=== PATIENT | female | born 1930 | race Caucasian/White ===

== ENCOUNTER → 2020-12-18 | Day surgery (SDC) | payer MEDICARE, OTHER ==
[2020-12-15 08:53] VITALS: BMI 28.4
[~2020-12-18] MED LIST: APIXABAN 2.5 MG TABLET PO STA; SODIUM CHLORIDE 0.9% 1,000 ML IV SCH; ceFAZolin 1 GM in SODIUM CHLORIDE 0.9% 250 ML IRRIGATION PRN
[2020-12-18 06:52] LABS: Basophils % (A) 1 %; Eosinophils # (A) 0.3 k/uL (0-0.7); Eosinophils % (A) 6 %; HCT 38.9 % (34.0-46.0); HGB 12.8 gm/dL (11.4-16.0); Lymphocytes # (A) 1.7 k/uL (1.0-4.8); Lymphocytes % (A) 37 %; MCH 33.4 pg (25.0-35.0); MCV 101.4 fL (80.0-100.0); Macrocytosis Slight; Mean Platelet Volume 8.3; Monocytes # (A) 0.3 k/uL (0-1.0); Monocytes % (A) 5 %; Neutrophils # (A) 2.3 k/uL (1.3-7.7); Neutrophils % (A) 49 %; Platelet Count 204 k/uL (150-450); RBC 3.84 m/uL (3.80-5.40); RDW 14.9 % (11.5-15.5); WBC 4.7 k/uL (3.8-10.6)
[2020-12-18 07:26] VITALS: BP 194/96; PULSE 36; RESP 16; TEMP 97
== END ==
LOC: CATHEP 05:56
PROVIDERS: ATTEND Internal Medicine Cardiovascular Disease
DX: R00.1 Bradycardia, unspecified (principal); Z53.9 Procedure and treatment not carried out, unspecified reason
CPT/HCPCS: 85025

== ENCOUNTER 2020-12-24 07:26 | Day surgery (SDC) | payer MEDICARE, OTHER ==
[2020-12-22 11:59] VITALS: BMI 27.4
[~2020-12-24 07:26] MED LIST changes: -APIXABAN 2.5 MG TABLET PO STA; -SODIUM CHLORIDE 0.9% 1,000 ML IV SCH
[2020-12-24] MEDS ORDERED: SODIUM CHLORIDE 0.9% 1,000 ML IV ONE (07:36)
[2020-12-24 08:25] LABS: Calcium 9.9 mg/dL (8.4-10.2)
[2020-12-24 08:26] LABS: Potassium 4.8 mmol/L (3.5-5.1)
[2020-12-24] MEDS ORDERED: IOPAMIDOL-300 50ML BTL IV ONE (09:00)
[2020-12-24] MEDS ORDERED: LIDOCAINE 1% INJ 10MG/ML (20 ML MDV) ONE ×2 (09:05)
[2020-12-24] MEDS ORDERED: fentaNYL (PF) 50 MCG/ML 2 ML AMP ONE (09:10)
[2020-12-24] MEDS ORDERED: fentaNYL (PF) 50 MCG/ML 2 ML AMP IV ONE (09:14)
[2020-12-24] MEDS ORDERED: MIDAZOLAM 2 MG/2 ML VIAL IV ONE (09:14)
[2020-12-24] MEDS ORDERED: LIDOCAINE 1% INJ 10MG/ML (20 ML MDV) SQ ONE (09:19)
--- NOTE | 2020-12-24 10:14 | P.PCN ---
Date of Procedure: 12/24/20 Preoperative Diagnosis: atrial fibrillation, sick sinus syndrome and bradycardia Postoperative Diagnosis: The same Procedure(s) Performed: Single-chamber permanent pacemaker implantation, axillary venography Description of Procedure: HISTORY: his is a 89-year-old female with history of chronic atrial fibrillation and CHF and valvular heart disease was noted to have bradycardic and had been fatigue. Patient was advised to have permanent pacemaker implantation. Patient was referred by Dr. Farmer. CONSENT:I have discussed the risks, benefits and alternative therapies for the above-mentioned procedure and for both sedation/analgesia as well as necessary blood product administration, if indicated, as they pertain to this patient. The patient has indicated understanding and acceptance of the risks and procedures discussed. PROCEDURE: Patient was brought to the lab in a fasting state. Patient was prepped and draped in the usual fashion. Patient was given IV sedation with fentanyl and Versed. The skin below the left clavicle was infiltrated with lidocaine. An incision was made parallel to deltopectoral groove was deepened until the pectoral fascia was exposed. A pocket was created by blunt dissection and cautery. Axillary venography was performed to delineate the course of the axillary vein. A single venous stick was performed into extrathoracic portion of the axillary vein and a single sheath advanced over the guidewires and left in subclavian vein. Conscious Sedation: Versed 0.5mg Fentanyl 12.5 ?g Duration 40minutes LEADS: VENTRICULAR: This is manufactured by [employer]. Model number is 4074-52. The serial number is [id number] THE DEVICE: This is manufactured by [employer].. The model number is [id number] and the serial number is [id number]. The ventricular lead is maneuvered l with help of a straight and curved stylets into the left ventricle apical region. Satisfactory position was obtained and threshold measurements were made. THRESHOLDS: VENTRICLE: The minimum patient threshold was 0.5 V at pulse width of 0.4 ms R-wave:. 8.3. The impedance is 1292 The leads and pulse generator remained in the pocket after it was washed with antibiotics. Pocket was closed in the usual fashion. The fa scia was closed with 2-0 Prolene ,the subcutaneous tissue was closed with 3-0 Prolene and the skin was closed with 4-0 Prolene. PROGRAMMING: MODE: VVIR RATE: 60-110 OUTPUT: Ventricle: 3.5 FINAL IMPRESSION: #1. Successful implantation of single-chamber pacemaker #2. Axillary venography COMPLICATIONS: none PLAN: patient will be monitored on the telemetry unit. Prophylactic antibiotics we'll continue. Chest x-ray in the morning. If x-ray findings and thresholds are stable, patient will be discharged home tomorrow.
[2020-12-24] MEDS: SODIUM CHLORIDE 0.9% 1,000 ML IV SCH (11:05)
[2020-12-24] MEDS: CYANOCOBALAMIN 500 MCG TAB PO SCH (12:08)
[2020-12-24] MEDS: CHOLECALCIFEROL 25 MCG (1000 IU) TABLET PO SCH (12:08)
[2020-12-24] MEDS: FUROSEMIDE 20 MG TAB PO SCH (14:58)
[2020-12-24] MEDS: VIT A,C & E-LUTEIN-MINERALS 1 EACH TAB PO SCH (19:53)
[2020-12-24] MEDS: ACETAMINOPHEN TAB 325 MG TAB PO PRN (19:53)
[2020-12-24] MEDS: DOCUSATE 100 MG CAP PO SCH (19:53)
[2020-12-24] MEDS ORDERED: LORazepam 0.5 MG TAB PO SCH (21:00)
[2020-12-25] MEDS: ACETAMINOPHEN TAB 325 MG TAB PO PRN ×2 (02:40→11:47)
[2020-12-25] MEDS: SODIUM CHLORIDE 0.9% 1,000 ML IV SCH (02:42)
[2020-12-25] MEDS ORDERED: PANTOPRAZOLE 40 MG TABLET PO SCH (07:30)
--- NOTE | 2020-12-25 08:50 | XR ---
EXAMINATION TYPE: XR chest 2V DATE OF EXAM: 12/25/2020 COMPARISON: NONE HISTORY: Lead placement check TECHNIQUE: Frontal and lateral views of the chest are obtained. FINDINGS: Patient is rotated. There is a generator in the left pectoral region, lead is present in t he right ventricle, there are overlying leads. No evident pneumothorax or pleural effusion. Heart is enlarged. Aorta is dense. There is questionable prominence of pulmonary artery, lobular densities als o present possibly at the right lung base. There is an inferior vena cava filter in place. There are prominent lung volumes. Arthropathy noted in the right shoulder. IMPRESSION: Cardiomegaly, no evident complication status post pacemaker placement. Rotated exam with indeterminate right lower hemithorax density. There may be underlying pulmonary artery hypertension.
[2020-12-25] MEDS ORDERED: allopurinoL 100 MG TAB PO SCH (09:00)
[2020-12-25] MEDS ORDERED: SERTRALINE 25 MG TAB PO SCH (09:00)
[2020-12-25] MEDS: DOCUSATE 100 MG CAP PO SCH (09:02)
[2020-12-25] MEDS: FUROSEMIDE 20 MG TAB PO SCH (09:02)
[2020-12-25] MEDS: VIT A,C & E-LUTEIN-MINERALS 1 EACH TAB PO SCH (09:03)
[2020-12-25 13:32] VITALS: BP 156/76; PULSE 63; RESP 16; TEMP 96.8
[2020-12-25] MEDS: CHOLECALCIFEROL 25 MCG (1000 IU) TABLET PO SCH (13:51)
[2020-12-25] MEDS: CYANOCOBALAMIN 500 MCG TAB PO SCH (13:51)
== END 2020-12-25 16:24 | disposition home or self-care (01) ==
LOC: CATHEP 07:26 → 6NMEDSUR 09:49 → CATHEP 12-25 16:24
PROVIDERS: ATTEND Internal Medicine Cardiovascular Disease
DX: I48.20 Chronic atrial fibrillation, unspecified (principal); I49.5 Sick sinus syndrome; I50.9 Heart failure, unspecified
CPT/HCPCS: 33207; 80048; 87635; 71046; C1769 ×2; C1892; C1898; C1786; J2250; J0690 ×2; J2001; J3010; Q9967; 33206

== ENCOUNTER 2021-12-10 14:23 | Inpatient (IN) | payer MEDICARE, OTHER ==
[2021-12-10] MEDS ORDERED: SODIUM CHLORIDE 0.9% 500 ML 500 ML IV STA (14:48)
--- NOTE | 2021-12-10 15:59 | ED ---
General Adult HPI - General Chief complaint: Extremity Problem,Nontraumatic Stated complaint: Extremity weakness Time Seen by Provider: 12/10/21 15:54 Source: patient Mode of arrival: ambulatory Limitations: no limitations - History of Present Illness Initial comments: 89-year-old female with past medical history of A. fib on Eliquis, colon cancer status post colostomy and congestive heart failure who presents to the emergency department with lower extremity edema. States that she has been seeing Dr. alberto and office. She was placed on Lasix 40 mg twice a day and hasn't taken medications as directed for the past 2 weeks because of her lower extremity edema. States that it has not been improving. Has caused significant pain in her feet. Patient arrives with an elevated heart rate. Does not take any medications for her A. fib other than her anticoagulation. Patient follows with Dr. Farmer. No chest pain. Mild shortness of breath when exertional. No fevers, chills or cough. No numbness or tingling in her extremities. No other alleviating, precipitating or modifying factors - Related Data Home Medications Medication Instructions Recorded Confirmed Acetaminophen [Tylenol Extra 1,000 mg PO DAILY 12/15/20 12/10/21 Strength] Acetaminophen [Tylenol Extra 500 mg PO HS 12/15/20 12/10/21 Strength] Cholecalciferol [Vitamin D3 (25 25 mcg PO DAILY 12/15/20 12/10/21 Mcg = 1000 Iu)] Cyanocobalamin [Vitamin B-12] 500 mcg PO DAILY 12/15/20 12/10/21 Furosemide [Lasix] 20 mg PO QID 12/15/20 12/10/21 LORazepam [Ativan] 0.5 mg PO HS 12/15/20 12/10/21 Sertraline HCl [Zoloft] 25 mg PO DAILY 12/15/20 12/10/21 Vit C/E/Zn/Coppr/Lutein/Zeaxan 1 cap PO DAILY 12/15/20 12/10/21 [Preservision Areds 2 Softgel] allopurinoL [Zyloprim] 50 mg PO DAILY 12/22/20 12/10/21 Apixaban [Eliquis] 2.5 mg PO BID 12/10/21 12/10/21 Docusate [Colace] 100 mg PO BID 12/10/21 12/10/21 HYDROcodone/APAP 5-325MG [[place] 1 tab PO Q6HR PRN 12/10/21 12/10/21 5-325] Meclizine [Antivert] 12.5 - 25 mg PO TID PRN 12/10/21 12/10/21 Multivitamins, Thera [Multivitamin 1 tab PO DAILY 12/10/21 12/10/21 (formulary)] Omeprazole 40 mg PO BID 12/10/21 12/10/21 Allergies Allergy/AdvReac Type Severity Reaction Status Date / Time No Known Allergies Allergy Verified 12/10/21 18:16 Review of Systems ROS Statement: Those systems with pertinent positive or pertinent negative responses have been documented in the HPI. ROS Other: All systems not noted in ROS Statement are negative. Past Medical History Past Medical History: Cancer, GERD/Reflux, Osteoarthritis (OA) Additional Past Medical History / Comment(s): see Dr Leger H&P, migraines, colostomy, hx colon cancer, hx gout, bradycardia History of Any Multi-Drug Resistant Organisms: None Reported Past Surgical History: Bowel Resection, Pacemaker Additional Past Surgical History / Comment(s): bowel resection with colostomy, radha cataracts Past Anesthesia/Blood Transfusion Reactions: No Reported Reaction Past Psychological History: Anxiety Smoking Status: Never smoker Past Alcohol Use History: None Reported Past Drug Use History: None Reported - Past Family History Mother Family Medical History: No Reported History General Exam Limitations: no limitations General appearance: alert, in no apparent distress Head exam: Present: atraumatic, normocephalic, normal inspection Eye exam: Present: normal appearance, PERRL, EOMI. Absent: scleral icterus, conjunctival injection, periorbital swelling ENT exam: Present: normal exam, mucous membranes moist Neck exam: Present: normal inspection. Absent: tenderness, meningismus, lymphadenopathy Respiratory exam: Present: normal lung sounds bilaterally. Absent: respiratory distress, wheezes, rales, rhonchi, stridor Cardiovascular Exam: Present: tachycardia, irregular rhythm, normal heart sounds. Absent: systolic murmur, diastolic murmur, rubs, gallop, clicks GI/Abdominal exam: Present: soft, normal bowel sounds. Absent: distended, tenderness, guarding, rebound, rigid Extremities exam: Present: full ROM, normal capillary refill, pedal edema, other (severe deformity of the bilateral second toes). Absent: tenderness, joint swelling, calf tenderness Back exam: Present: normal inspection Neurological exam: Present: alert, oriented X3, CN II-XII intact Psychiatric exam: Present: normal affect, normal mood Skin exam: Present: warm, dry, intact, normal color. Absent: rash Course Vital Signs 12/10/21 12/10/21 12/10/21 14:25 16:13 16:35 Temperature 97.9 F 98.8 F Pulse Rate 148 H 129 H Pulse Rate [ Substation Engineer ] Respiratory 20 16 Rate Blood Pressure 95/68 112/102 Blood Pressure [Right Arm] O2 Sat by Pulse 96 Oximetry 12/10/21 12/10/21 12/10/21 20:24 20:27 21:40 Temperature 98.4 F Pulse Rate 115 H 90 Pulse Rate [ 101 H Substation Engineer ] Respiratory 18 17 Rate Blood Pressure 107/64 101/71 Blood Pressure 96/72 [Right Arm] O2 Sat by Pulse 98 96 Oximetry 12/10/21 21:47 Temperature 98.4 F Pulse Rate Pulse Rate [ 101 H Substation Engineer ] Respiratory 17 Rate Blood Pressure Blood Pressure 96/72 [Right Arm] O2 Sat by Pulse Oximetry EKG Findings - EKG Comments: EKG Findings:: EKG demonstrates A. fib with the rapid ventricular rate of 117. QRS 133. QTC of 407. There is a left bundle branch block. No acute ST segment elevations or depressions Medical Decision Making - Medical Decision Making Upon arrival patient is placed into trauma 4. She is hooked up to continuous pulse ox and cardiac monitoring. Patient does have an elevated heart rate of anywhere from 100-125. IV is established and laboratory studies were conducted. They do reveal an elevated BNP of 10,600. Chest x-ray demonstrates no signs of interstitial edema. Patient was given 40 mg of Lasix for her fluid retention and 2.5 mg of Lopressor. Recommended admission for her A. fib with RVR and failed outpatient treatment of congestive heart failure. Spoke with Dr. Zavala who agreed to admit the patient - Lab Data Result diagrams: 12/13/21 07:06 12/14/21 09:45 Lab Results 12/10/21 12/10/21 12/10/21 Range/Units 16:28 16:28 16:28 WBC 4.4 (3.8-10.6) k/uL RBC 3.87 (3.80-5.40) m/uL Hgb 12.2 (11.4-16.0) gm/dL Hct 39.0 (34.0-46.0) % MCV 100.7 H (80.0-100.0) fL MCH 31.6 (25.0-35.0) pg MCHC 31.3 (31.0-37.0) g/dL RDW 14.9 (11.5-15.5) % Plt Count 191 (150-450) k/uL MPV 9.0 Neutrophils % (Manual) 63 % Band Neuts % (Manual) 1 % Lymphocytes % (Manual) 27 % Monocytes % (Manual) 4 % Eosinophils % (Manual) 3 % Basophils % (Manual) 2 % Neutrophils # (Manual) 2.80 (1.3-7.7) k/uL Lymphocytes # (Manual) 1.19 (1.0-4.8) k/uL Monocytes # (Manual) 0.18 (0-1.0) k/uL Eosinophils # (Manual) 0.13 (0-0.7) k/uL Basophils # (Manual) 0.09 (0-0.2) k/uL Nucleated RBCs 0 (0-0) /100 WBC Manual Slide Review Performed Hypochromasia Slight Macrocytosis Slight PT 12.1 H (9.0-12.0) sec INR 1.1 (<1.2) APTT 25.1 (22.0-30.0) sec Sodium 138 (137-145) mmol/L Potassium 4.0 (3.5-5.1) mmol/L Chloride 99 (98-107) mmol/L Carbon Dioxide 28 (22-30) mmol/L Anion Gap 11 mmol/L BUN 29 H (7-17) mg/dL Creatinine 1.14 H (0.52-1.04) mg/dL Est GFR (CKD-EPI)AfAm 50 (>60 ml/min/1.73 sqM) Est GFR (CKD-EPI)NonAf 43 (>60 ml/min/1.73 sqM) Glucose 95 (74-99) mg/dL Calcium 9.4 (8.4-10.2) mg/dL Magnesium 1.8 (1.6-2.3) mg/dL Total Bilirubin 0.6 (0.2-1.3) mg/dL AST 43 H (14-36) U/L ALT 24 (4-34) U/L Alkaline Phosphatase 92 (38-126) U/L Troponin I (0.000-0.034) ng/mL NT-Pro-B Natriuret Pep pg/mL Total Protein 6.2 L (6.3-8.2) g/dL Albumin 3.7 (3.5-5.0) g/dL 12/10/21 12/10/21 Range/Units 16:28 16:28 WBC (3.8-10.6) k/uL RBC (3.80-5.40) m/uL Hgb (11.4-16.0) gm/dL Hct (34.0-46.0) % MCV (80.0-100.0) fL MCH (25.0-35.0) pg MCHC (31.0-37.0) g/dL RDW (11.5-15.5) % Plt Count (150-450) k/uL MPV Neutrophils % (Manual) % Band Neuts % (Manual) % Lymphocytes % (Manual) % Monocytes % (Manual) % Eosinophils % (Manual) % Basophils % (Manual) % Neutrophils # (Manual) (1.3-7.7) k/uL Lymphocytes # (Manual) (1.0-4.8) k/uL Monocytes # (Manual) (0-1.0) k/uL Eosinophils # (Manual) (0-0.7) k/uL Basophils # (Manual) (0-0.2) k/uL Nucleated RBCs (0-0) /100 WBC Manual Slide Review Hypochromasia Macrocytosis PT (9.0-12.0) sec INR (<1.2) APTT (22.0-30.0) sec Sodium (137-145) mmol/L Potassium (3.5-5.1) mmol/L Chloride (98-107) mmol/L Carbon Dioxide (22-30) mmol/L Anion Gap mmol/L BUN (7-17) mg/dL Creatinine (0.52-1.04) mg/dL Est GFR (CKD-EPI)AfAm (>60 ml/min/1.73 sqM) Est GFR (CKD-EPI)NonAf (>60 ml/min/1.73 sqM) Glucose (74-99) mg/dL Calcium (8.4-10.2) mg/dL Magnesium (1.6-2.3) mg/dL Total Bilirubin (0.2-1.3) mg/dL AST (14-36) U/L ALT (4-34) U/L Alkaline Phosphatase (38-126) U/L Troponin I 0.018 (0.000-0.034) ng/mL NT-Pro-B Natriuret Pep 04832 pg/mL Total Protein (6.3-8.2) g/dL Albumin (3.5-5.0) g/dL Disposition Clinical Impression: Peripheral edema, Atrial fibrillation with RVR Disposition: ADMITTED IP TO THIS HOSP Condition: Stable Is patient prescribed a controlled substance at d/c from ED?: No Time of Disposition: 18:43 Decision to Admit Reason: Admit from EC Decision Date: 12/10/21 Decision Time: 18:43
[2021-12-10 16:45] LABS: HGB 12.2 gm/dL (11.4-16.0); Hypochromasia Slight; MCH 31.6 pg (25.0-35.0); MCHC 31.3 g/dL (31.0-37.0); MCV 100.7 fL (80.0-100.0); Macrocytosis Slight; RBC 3.87 m/uL (3.80-5.40); RDW 14.9 % (11.5-15.5); WBC 4.4 k/uL (3.8-10.6)
[2021-12-10 16:56] LABS: Albumin 3.7 g/dL (3.5-5.0); Calcium 9.4 mg/dL (8.4-10.2); Magnesium 1.8 mg/dL (1.6-2.3); Total Bilirubin 0.6 mg/dL (0.2-1.3); Total Protein 6.2 g/dL (6.3-8.2)
[2021-12-10 17:20] LABS: INR 1.1 (<1.2); Partial Thromboplastin Time 25.1 sec (22.0-30.0); Prothrombin Time 12.1 sec (9.0-12.0)
--- NOTE | 2021-12-10 17:22 | XR ---
EXAMINATION TYPE: XR chest 2V DATE OF EXAM: 12/10/2021 COMPARISON: 12/25/2020 HISTORY: Dysrhythmia TECHNIQUE: 2 views FINDINGS: Heart is enlarged. There is no heart failure. There is left axillary pacemaker. No definite pleural effusion. There are no hilar masses. IMPRESSION: Cardiomegaly. No pulmonary consolidation or heart failure. No significant change compared to old exam.
[2021-12-10 17:36] LABS: Band Neutrophils % 1 %; Basophils # (M) 0.09 k/uL (0-0.2); Eosinophils # (M) 0.13 k/uL (0-0.7); Lymphocytes # (M) 1.19 k/uL (1.0-4.8); Monocytes # (M) 0.18 k/uL (0-1.0); Neutrophils % (M) 63 %; Nucleated Red Blood Cells 0 /100 WBC (0-0); Total Cells Counted 100
[2021-12-10 17:37] LABS: Platelet Count 191 k/uL (150-450)
[2021-12-10] MEDS ORDERED: METOPROLOL TARTRATE 5 MG/5 ML VIAL IVP STA (18:42)
[2021-12-10] MEDS ORDERED: NALOXONE 0.4 MG/ML 1 ML VIAL IV PRN (18:43)
[2021-12-10 19:11] LABS: Appearance,Urine Clear (Clear); Bilirubin,Urine Negative (Negative); Blood,Urine Negative (Negative); Color,Urine Yellow; Glucose,Urine (UA) Negative (Negative); Hyaline Casts,Urine 7 /lpf (0-2); Ketones,Urine Trace (Negative); Leukocyte Esterase,Urine Moderate (Negative); Mucus,Urine Rare /hpf; Nitrite,Urine Negative (Negative); PH, Urine 5.5 (5.0-8.0); Protein,Urine Trace (Negative); RBC,Urine 1 /hpf (0-5); Specific Gravity,Urine 1.017 (1.001-1.035); Squamous Epithelial Cell,Urine <1 /hpf (0-4); Urobilinogen,Urine <2.0 mg/dL (<2.0); WBC,Urine 32 /hpf (0-5)
[2021-12-10] MEDS: FUROSEMIDE 10 MG/ML 4 ML VIAL IV STA ×2 (20:23→22:12)
[2021-12-11] MEDS ORDERED: HYDROcodone/APAP 5-325MG 1 EACH TAB PO PRN (01:16)
[2021-12-11] MEDS: PANTOPRAZOLE 40 MG TABLET PO SCH (08:27)
[2021-12-11] MEDS: APIXABAN 2.5 MG TABLET PO SCH ×2 (08:27→20:19)
[2021-12-11] MEDS: allopurinoL 100 MG TAB PO SCH (08:27)
[2021-12-11] MEDS ORDERED: FUROSEMIDE 10 MG/ML 4 ML VIAL IV SCH (09:00)
[2021-12-11] MEDS ORDERED: ACETAMINOPHEN TAB 325 MG TAB PO PRN (09:39)
[2021-12-11] MEDS: METOPROLOL TARTRATE 12.5 MG TAB PO SCH ×2 (09:54→20:19)
[2021-12-11 10:40] LABS: African American GFR (CKD) 58 (>60 ml/min/1.73 sqM); Anion Gap 8 mmol/L; Blood Urea Nitrogen 25 mg/dL (7-17); Calcium 9.1 mg/dL (8.4-10.2); Carbon Dioxide 31 mmol/L (22-30); Chloride 99 mmol/L (98-107); Glucose 115 mg/dL (74-99); Non-African American GFR(CKD) 50 (>60 ml/min/1.73 sqM); Potassium 3.6 mmol/L (3.5-5.1); Sodium 138 mmol/L (137-145)
--- NOTE | 2021-12-11 10:47 | P.CRDCN ---
History of Present Illness Consult date: 12/11/21 Consult reason: congestive heart failure History of present illness: The patient is an 89-year-old female who follows in the office with Dr. Farmer. The patient has a history of persistent atrial fibrillation and sick sinus syndrome status post permanent pacemaker implantation in 2020. The patient states she was doing well and last followed with a athletic director in August, however she developed increasing shortness of breath and lower extremity edema. Cardiology was consulted for elevated BNP. DIAGNOSTICS: EKG shows atrial fibrillation with heart rate 117 bpm Chest x-ray shows no pulmonary consolidation or heart failure Vitals: Blood pressure 101/58, pulse 92, SpO2 93% on room air, afebrile Lab: BNP 10,000, troponin 0.01, 0.01, 0.02, sodium 138, potassium 4.0, BUN 29, creatinine 1.14, AST 43, ALT 24, WBC 4.4, hemoglobin 12.2, hematocrit 39.0, platelet 191 PAST MEDICAL HISTORY: Sick sinus syndrome, status post permanent pacemaker, persistent atrial fibrillation REVIEW OF SYSTEMS: No fever or chills. No cough or expectoration. No diaphoresis. Patient denies headache, dizziness, blurred vision, double vision. Patient denies any stomach discomfort. No nausea, vomiting. No hematochezia. No hematemesis. Denies any black stools or blood in his stools. Denies dysuria or hematuria. No muscle weakness or numbness. Denies chest pain or chest pressure. Positive for dyspnea PHYSICAL EXAMINATION: This is a 89 year-old female in no apparent distress at the time of my examination. HEENT: Head is atraumatic, normocephalic. Pupils are equal, round. Sclerae anicteric. Conjunctivae are clear. Mucous membranes of the mouth are moist. Neck is supple. There is no jugular venous distention. No carotid bruit is heard. CHEST EXAMINATION: Lungs are diminished to auscultation. No chest wall tenderness is noted on palpation or with deep breathing. HEART EXAMINATION: Irregular rate and rhythm. S1, S2 heard. Soft systolic murmur. gallops or rub. ABDOMEN: Soft, nontender. Bowel sounds are heard. No organomegaly noted. EXTREMITIES: 2+ peripheral pulses. +1-2 peripheral edema and no calf tenderness noted. NEUROLOGIC EXAMINATION: Patient is awake, alert and oriented x3. FINAL ASSESSMENT AND PLAN: Persistent atrial fibrillation, started on low-dose beta alden Sick sinus syndrome, status post permanent pacemaker Congestive heart failure, elevated BNP, diuresed with IV furosemide PLAN: Continue beta alden and anticoagulation Reduce furosemide to 40 mg IV push once daily No need for repeat echocardiogram at this time. Elective echocardiogram outpatient with primary athletic director. Further recommendations based upon clinical course I am dictating on behalf of Dr Oziel Vega's history/physical and assessment/plan. Past Medical History Past Medical History: Cancer, GERD/Reflux, Osteoarthritis (OA) Additional Past Medical History / Comment(s): see Dr Leger H&P, migraines, colostomy, hx colon cancer, hx gout, bradycardia History of Any Multi-Drug Resistant Organisms: None Reported Past Surgical History: Bowel Resection, Pacemaker Additional Past Surgical History / Comment(s): bowel resection with colostomy, radha cataracts Past Anesthesia/Blood Transfusion Reactions: No Reported Reaction Type of Cardiac Device: Permanent Pacemaker Device Placement Date:: 2020 Past Psychological History: Anxiety Smoking Status: Never smoker Past Alcohol Use History: None Reported Past Drug Use History: None Reported - Past Family History Mother Family Medical History: No Reported History Medications and Allergies Home Medications Medication Instructions Recorded Confirmed Type Acetaminophen [Tylenol Extra 1,000 mg PO DAILY 12/15/20 12/10/21 History Strength] Acetaminophen [Tylenol Extra 500 mg PO HS 12/15/20 12/10/21 History Strength] Cholecalciferol [Vitamin D3 (25 25 mcg PO DAILY 12/15/20 12/10/21 History Mcg = 1000 Iu)] Cyanocobalamin [Vitamin B-12] 500 mcg PO DAILY 12/15/20 12/10/21 History Furosemide [Lasix] 20 mg PO QID 12/15/20 12/10/21 History LORazepam [Ativan] 0.5 mg PO HS 12/15/20 12/10/21 History Sertraline HCl [Zoloft] 25 mg PO DAILY 12/15/20 12/10/21 History Vit C/E/Zn/Coppr/Lutein/Zeaxan 1 cap PO DAILY 12/15/20 12/10/21 History [Preservision Areds 2 Softgel] allopurinoL [Zyloprim] 50 mg PO DAILY 12/22/20 12/10/21 History Apixaban [Eliquis] 2.5 mg PO BID 12/10/21 12/10/21 History Docusate [Colace] 100 mg PO BID 12/10/21 12/10/21 History HYDROcodone/APAP 5-325MG [[place] 1 tab PO Q6HR PRN 12/10/21 12/10/21 History 5-325] Meclizine [Antivert] 12.5 - 25 mg PO TID PRN 12/10/21 12/10/21 History Multivitamins, Thera [Multivitamin 1 tab PO DAILY 12/10/21 12/10/21 History (formulary)] Omeprazole 40 mg PO BID 12/10/21 12/10/21 History Allergies Allergy/AdvReac Type Severity Reaction Status Date / Time No Known Allergies Allergy Verified 12/10/21 18:16 Physical Exam Vitals: Vital Signs Temp Pulse Pulse Resp BP BP Pulse Ox 12/11/21 08:21 97.8 F 92 16 101/58 93 L 12/11/21 04:00 98.0 F 99 18 96/70 97 12/11/21 02:00 112 H 12/11/21 00:00 97.9 F 112 H 18 96/63 94 L 12/10/21 21:47 98.4 F 101 H 17 96/72 12/10/21 21:40 98.4 F 101 H 17 96/72 96 12/10/21 20:27 90 101/71 12/10/21 20:24 115 H 18 107/64 98 12/10/21 16:35 98.8 F 12/10/21 16:13 129 H 16 112/102 12/10/21 14:25 97.9 F 148 H 20 95/68 96 Intake and Output 12/10/21 12/11/21 12/11/21 22:59 06:59 14:59 Intake Total 120 Balance 120 Intake: Oral 120 Other: Voiding Method Toilet External Catheter # Voids 1 Weight 55.338 kg Results 12/10/21 16:28 12/10/21 16:28 Cardiac Enzymes 12/10/21 12/10/21 12/10/21 Range/Units 16:28 16:28 20:46 AST 43 H (14-36) U/L Troponin I 0.018 0.019 (0.000-0.034) ng/mL 12/11/21 Range/Units 00:30 AST (14-36) U/L Troponin I 0.023 (0.000-0.034) ng/mL Coagulation 12/10/21 Range/Units 16:28 PT 12.1 H (9.0-12.0) sec APTT 25.1 (22.0-30.0) sec CBC 12/10/21 Range/Units 16:28 WBC 4.4 (3.8-10.6) k/uL RBC 3.87 (3.80-5.40) m/uL Hgb 12.2 (11.4-16.0) gm/dL Hct 39.0 (34.0-46.0) % Plt Count 191 (150-450) k/uL Comprehensive Metabolic Panel 12/10/21 Range/Units 16:28 Sodium 138 (137-145) mmol/L Potassium 4.0 (3.5-5.1) mmol/L Chloride 99 (98-107) mmol/L Carbon Dioxide 28 (22-30) mmol/L BUN 29 H (7-17) mg/dL Creatinine 1.14 H (0.52-1.04) mg/dL Glucose 95 (74-99) mg/dL Calcium 9.4 (8.4-10.2) mg/dL AST 43 H (14-36) U/L ALT 24 (4-34) U/L Alkaline Phosphatase 92 (38-126) U/L Total Protein 6.2 L (6.3-8.2) g/dL Albumin 3.7 (3.5-5.0) g/dL Current Medications Generic Name Dose Route Start Last Admin Trade Name Freq PRN Reason Stop Dose Admin Acetaminophen 650 mg 12/11/21 09:39 12/11/21 09:54 Acetaminophen Tab 325 Mg Tab PO 650 mg Q6HR PRN Administration Fever and/ or Pain Hydrocodone Bitart/Acetaminophen 1 each 12/11/21 01:16 Hydrocodone/Apap 5-325mg 1 Each Tab PO Q6HR PRN Pain Allopurinol 50 mg 12/11/21 09:00 12/11/21 08:27 Allopurinol 100 Mg Tab PO 50 mg DAILY NALLELY Administration Apixaban 2.5 mg 12/11/21 09:00 12/11/21 08:27 Apixaban 2.5 Mg Tablet PO 2.5 mg BID NALLELY Administration Protocol Furosemide 40 mg 12/12/21 09:00 Furosemide 40 Mg Tab PO DAILY NALLELY Lorazepam 0.5 mg 12/11/21 21:00 Lorazepam 0.5 Mg Tab PO HS NALLELY Metoprolol Tartrate 12.5 mg 12/11/21 10:00 12/11/21 09:54 Metoprolol Tartrate 12.5 Mg Tab PO 12.5 mg BID NALLELY Administration Naloxone HCl 0.2 mg 12/10/21 18:43 Naloxone 0.4 Mg/Ml 1 Ml Vial IV Q2M PRN Opioid Reversal Pantoprazole Sodium 40 mg 12/11/21 09:00 12/11/21 08:27 Pantoprazole 40 Mg Tablet PO 40 mg DAILY NALLELY Administration Intake and Output 12/10/21 12/11/21 12/11/21 22:59 06:59 14:59 Intake Total 120 Balance 120 Intake: Oral 120 Other: Voiding Method Toilet External Catheter # Voids 1 Weight 55.338 kg 12/10/21 16:28 12/10/21 16:28
[2021-12-11 10:50] LABS: Basophils % (A) 1 %; Eosinophils % (A) 1 %; HCT 40.3 % (34.0-46.0); HGB 12.7 gm/dL (11.4-16.0); Hypochromasia Slight; Lymphocytes # (A) 1.1 k/uL (1.0-4.8); Lymphocytes % (A) 23 %; MCH 32.2 pg (25.0-35.0); MCHC 31.5 g/dL (31.0-37.0); MCV 102.1 fL (80.0-100.0); Macrocytosis Slight; Mean Platelet Volume 9.3; Monocytes # (A) 0.3 k/uL (0-1.0); Monocytes % (A) 6 %; Neutrophils # (A) 3.1 k/uL (1.3-7.7); Neutrophils % (A) 67 %; Platelet Count 215 k/uL (150-450); RBC 3.94 m/uL (3.80-5.40); RDW 15.4 % (11.5-15.5); WBC 4.7 k/uL (3.8-10.6)
[2021-12-11] MEDS: ONDANSETRON 4 MG/2 ML VIAL IVP PRN (11:01)
[2021-12-11] MEDS ORDERED: MECLIZINE 25 MG TAB PO PRN (14:21)
[2021-12-11] MEDS: FUROSEMIDE 20 MG TAB PO SCH ×2 (17:19→23:04)
[2021-12-11] MEDS: DOCUSATE 100 MG CAP PO SCH (19:55)
[2021-12-11] MEDS: ACETAMINOPHEN TAB 500 MG TAB PO SCH (20:19)
[2021-12-11] MEDS: LORazepam 0.5 MG TAB PO SCH (20:19)
[2021-12-12] MEDS: METOPROLOL TARTRATE 12.5 MG TAB PO SCH ×2 (08:20→22:00)
[2021-12-12] MEDS: FUROSEMIDE 20 MG TAB PO SCH ×4 (08:20→22:01)
[2021-12-12] MEDS: PANTOPRAZOLE 40 MG TABLET PO SCH (08:20)
[2021-12-12] MEDS: VIT A,C & E-LUTEIN-MINERALS 1 EACH TAB PO SCH (08:20)
[2021-12-12] MEDS: SERTRALINE 25 MG TAB PO SCH (08:20)
[2021-12-12] MEDS: CYANOCOBALAMIN 500 MCG TAB PO SCH (08:20)
[2021-12-12] MEDS: APIXABAN 2.5 MG TABLET PO SCH ×2 (08:20→22:01)
[2021-12-12] MEDS: CHOLECALCIFEROL 25 MCG (1000 IU) TABLET PO SCH (08:20)
[2021-12-12] MEDS: allopurinoL 100 MG TAB PO SCH (08:20)
[2021-12-12] MEDS: MULTIVITAMINS, THERA 1 EACH TAB PO SCH (08:20)
[2021-12-12] MEDS: DOCUSATE 100 MG CAP PO SCH ×2 (08:20→22:01)
[2021-12-12] MEDS ORDERED: FUROSEMIDE 40 MG TAB PO SCH (09:00)
[2021-12-12] MEDS ORDERED: FUROSEMIDE 10 MG/ML 4 ML VIAL IV SCH (09:00)
--- NOTE | 2021-12-12 09:36 | P.HPIM ---
History of Present Illness H&P Date: 12/11/21 Maggy Davison, is an 89-year-old female who presented to [facility] emergency room with a chief complaint of bilateral lower extremity pain and swelling She was evaluated in the emergency room vital examination on presentation revealed a temperature of 97.9 pulse 148 respiration 20 blood pressure 95/68 pulse ox 96% on room air Laboratory data reveals a white blood count of 4.4 hemoglobin 12.2 platelet count 191 sodium 138 potassium 4.0 chloride 99 CO2 28 BUN 29 creatinine 1.14 urine analysis revealed evidence of urinary tract infection Testing in the emergency room revealed EKG done in the emergency room revealed evidence of atrial fibrillation with rapid ventricular response, chest x-ray done in the emergency room revealed cardiomegaly otherwise no acute abnormality. Patient was admitted to medical floor for further evaluation and treatment Past Medical History Past Medical History: Cancer, GERD/Reflux, Osteoarthritis (OA) Additional Past Medical History / Comment(s): see Dr Leger H&P, migraines, colostomy, hx colon cancer, hx gout, bradycardia History of Any Multi-Drug Resistant Organisms: None Reported Past Surgical History: Bowel Resection, Pacemaker Additional Past Surgical History / Comment(s): bowel resection with colostomy, radha cataracts Past Anesthesia/Blood Transfusion Reactions: No Reported Reaction Type of Cardiac Device: Permanent Pacemaker Device Placement Date:: 2020 Past Psychological History: Anxiety Smoking Status: Never smoker Past Alcohol Use History: None Reported Past Drug Use History: None Reported - Past Family History Mother Family Medical History: No Reported History Medications and Allergies Home Medications Medication Instructions Recorded Confirmed Type Acetaminophen [Tylenol Extra 1,000 mg PO DAILY 12/15/20 12/10/21 History Strength] Acetaminophen [Tylenol Extra 500 mg PO HS 12/15/20 12/10/21 History Strength] Cholecalciferol [Vitamin D3 (25 25 mcg PO DAILY 12/15/20 12/10/21 History Mcg = 1000 Iu)] Cyanocobalamin [Vitamin B-12] 500 mcg PO DAILY 12/15/20 12/10/21 History Furosemide [Lasix] 20 mg PO QID 12/15/20 12/10/21 History LORazepam [Ativan] 0.5 mg PO HS 12/15/20 12/10/21 History Sertraline HCl [Zoloft] 25 mg PO DAILY 12/15/20 12/10/21 History Vit C/E/Zn/Coppr/Lutein/Zeaxan 1 cap PO DAILY 12/15/20 12/10/21 History [Preservision Areds 2 Softgel] allopurinoL [Zyloprim] 50 mg PO DAILY 12/22/20 12/10/21 History Apixaban [Eliquis] 2.5 mg PO BID 12/10/21 12/10/21 History Docusate [Colace] 100 mg PO BID 12/10/21 12/10/21 History HYDROcodone/APAP 5-325MG [[place]ven 1 tab PO Q6HR PRN 12/10/21 12/10/21 History 5-325] Meclizine [Antivert] 12.5 - 25 mg PO TID PRN 12/10/21 12/10/21 History Multivitamins, Thera [Multivitamin 1 tab PO DAILY 12/10/21 12/10/21 History (formulary)] Omeprazole 40 mg PO BID 12/10/21 12/10/21 History Allergies Allergy/AdvReac Type Severity Reaction Status Date / Time No Known Allergies Allergy Verified 12/10/21 18:16 Physical Exam Vitals: Vital Signs Temp Pulse Pulse Resp BP BP Pulse Ox 12/11/21 11:32 99 16 99/67 94 L 12/11/21 08:21 97.8 F 92 16 101/58 93 L 12/11/21 04:00 98.0 F 99 18 96/70 97 12/11/21 02:00 112 H 12/11/21 00:00 97.9 F 112 H 18 96/63 94 L 12/10/21 21:47 98.4 F 101 H 17 96/72 12/10/21 21:40 98.4 F 101 H 17 96/72 96 12/10/21 20:27 90 101/71 12/10/21 20:24 115 H 18 107/64 98 12/10/21 16:35 98.8 F 12/10/21 16:13 129 H 16 112/102 12/10/21 14:25 97.9 F 148 H 20 95/68 96 Intake and Output 12/10/21 12/11/21 12/11/21 22:59 06:59 14:59 Intake Total 120 Balance 120 Intake: Oral 120 Other: Voiding Method Toilet External Catheter # Voids 1 Weight 55.338 kg In general patient is alert and oriented x 3 in no distress HEENT head normocephalic and atraumatic Neck is supple no JVD no goiter no lymphadenopathy no carotid bruit Chest examination is clear to auscultation no crackles no wheezing Cardiac exam reveals regular heart sounds S1 and S2 no gallops no murmurs Abdomen is soft nontender no organomegaly with normal bowel sounds Extremity exam reveals 2+ edema no cyanosis or clubbing Neurological examination reveals no gross focal deficits Results CBC & Chem 7: 12/11/21 09:43 12/11/21 09:43 Labs: Abnormal Lab Results - Last 24 Hours (Table) 12/10/21 12/10/21 12/10/21 Range/Units 16:28 16:28 16:28 MCV 100.7 H (80.0-100.0) fL PT 12.1 H (9.0-12.0) sec Carbon Dioxide (22-30) mmol/L BUN 29 H (7-17) mg/dL Creatinine 1.14 H (0.52-1.04) mg/dL Glucose (74-99) mg/dL AST 43 H (14-36) U/L Total Protein 6.2 L (6.3-8.2) g/dL Urine Protein (Negative) Urine Ketones (Negative) Ur Leukocyte Esterase (Negative) Urine WBC (0-5) /hpf Hyaline Casts (0-2) /lpf Urine Mucus (None) /hpf 12/10/21 12/11/21 12/11/21 Range/Units 19:00 09:43 09:43 MCV 102.1 H (80.0-100.0) fL PT (9.0-12.0) sec Carbon Dioxide 31 H (22-30) mmol/L BUN 25 H (7-17) mg/dL Creatinine (0.52-1.04) mg/dL Glucose 115 H (74-99) mg/dL AST (14-36) U/L Total Protein (6.3-8.2) g/dL Urine Protein Trace H (Negative) Urine Ketones Trace H (Negative) Ur Leukocyte Esterase Moderate H (Negative) Urine WBC 32 H (0-5) /hpf Hyaline Casts 7 H (0-2) /lpf Urine Mucus Rare H (None) /hpf Microbiology - Last 24 Hours (Table) 12/10/21 19:00 Urine Culture - Preliminary Urine,Clean Catch Thrombosis Risk Factor Assmnt - Choose All That Apply Any of the Below Risk Factors Present?: No Other Risk Factors: Yes Each Risk Factor Represents 3 Points: Age 75 years or older Other congenital or acquired thrombophilia - If yes, enter type in comment: No Thrombosis Risk Factor Assessment Total Risk Factor Score: 3 Thrombosis Risk Factor Assessment Level: Moderate Risk Assessment and Plan Plan: Bilateral lower extremity edema Acute congestive heart failure exacerbation Atrial fibrillation with rapid ventricular response Underlying history of cardiac arrhythmia was history of pacemaker placement Underlying history of anxiety disorder Previous history of colon cancer status post partial colectomy with colostomy placement At this time patient is admitted to telemetry floor Cardiology consultation was requested She was started on IV Lasix She was continued on oral Eliquis For heart rate control patient was started on metoprolol Home medications reviewed and reordered Will recheck labs in a.m. and follow closely
--- NOTE | 2021-12-12 10:10 | P.PN ---
Subjective Progress Note Date: 12/12/21 The patient is an 89-year-old female who follows in the office with Dr. Farmer. The patient has a history of persistent atrial fibrillation and sick sinus syndrome status post permanent pacemaker implantation in 2020. The patient states she was doing well and last followed with a motor grader rough grade in August, however she developed increasing shortness of breath and lower extremity edema. The patient states she did well overnight and she is feeling better. Her main complaint is foot discomfort. She denies any chest pain or chest pressure. No shortness of breath. She believes her edema has improved. GENERAL: Well-appearing, well-nourished and in no acute distress. NECK: Supple without JVD or thyromegaly. LUNGS: Breath sounds clear to auscultation bilaterally. Respiration equal and unlabored. No wheezes, rales or rhonchi. HEART: Irregular rate and rhythm without rubs or gallops. S1 and S2 heard. S ystolic murmur. EXTREMITIES: Normal range of motion, mild edema. No clubbing or cyanosis. Peripheral pulses intact. VITALS: Blood pressure 89/55, pulse 91, respiratory rate 16, SpO2 96% on room air, afebrile TELEMETRY: Persistent atrial fibrillation with heart rates in the low 100s LABS: WBC 4.7, hemoglobin 12.7, hematocrit 40.3, platelet 250, sodium 138, potassium 3.6, BUN 25, creatinine 1.0, TSH 0.96 IMPRESSION: Persistent atrial fibrillation, started on low-dose beta alden Sick sinus syndrome, status post permanent pacemaker Congestive heart failure, elevated BNP, diuresed with IV furosemide PLAN: Start low-dose digoxin for rate control Continue oral diuretics Further recommendations based upon clinical I am dictating on behalf of Dr Oziel Vega's history/physical and assessme nt/plan. Objective - Vital Signs Vital signs: Vital Signs Temp 97.7 F 12/12/21 08:17 Pulse 91 12/12/21 08:17 Resp 16 12/12/21 08:17 BP 89/55 12/12/21 08:17 Pulse Ox 96 12/12/21 08:17 FiO2 Intake & Output 12/11/21 12/12/21 12/12/21 18:59 06:59 18:59 Intake Total 240 Balance 240 Intake: Oral 240 Other: Voiding Method Toilet Toilet Toilet # Voids 1 1 1 - Labs CBC & Chem 7: 12/11/21 09:43 12/11/21 09:43 Labs: Abnormal Lab Results - Last 24 Hours (Table) 12/11/21 12/11/21 Range/Units 09:43 09:43 MCV 102.1 H (80.0-100.0) fL Carbon Dioxide 31 H (22-30) mmol/L BUN 25 H (7-17) mg/dL Glucose 115 H (74-99) mg/dL Microbiology - Last 24 Hours (Table) 12/10/21 19:00 Urine Culture - Final Urine,Clean Catch
[2021-12-12] MEDS: DIGOXIN 62.5 MCG TAB PO SCH (11:50)
--- NOTE | 2021-12-12 12:37 | P.PN ---
Subjective Progress Note Date: 12/12/21 Maggy Davison, is an 89-year-old female who presented to [facility] emergency room with a chief complaint of bilateral lower extremity pain and swelling She was evaluated in the emergency room vital examination on presentation revealed a temperature of 97.9 pulse 148 respiration 20 blood pressure 95/68 pulse ox 96% on room air Laboratory data reveals a white blood count of 4.4 hemoglobin 12.2 platelet count 191 sodium 138 potassium 4.0 chloride 99 CO2 28 BUN 29 creatinine 1.14 uri ne analysis revealed evidence of urinary tract infection Testing in the emergency room revealed EKG done in the emergency room revealed evidence of atrial fibrillation with rapid ventricular response, chest x-ray done in the emergency room revealed cardiomegaly otherwise no acute abnormality. Patient was admitted to medical floor for further evaluation and treatment On 12/12/2021 patient was seen and examined on the telemetry floor she is alert and oriented 3 in no apparent distress she is complaining of bilateral lower extremity swelling, and complaining of right foot pain, otherwise she denies any complaints there is no fever or chills, no headache or dizziness no chest pain no shortness of breath no cough no nausea or vomiting no abdominal pain no diarrhea and no urinary symptoms. Objective - Vital Signs Vital signs: Vital Signs Temp 97.7 F 12/12/21 08:17 Pulse 91 12/12/21 08:17 Resp 16 12/12/21 08:17 BP 89/55 12/12/21 08:17 Pulse Ox 96 12/12/21 08:17 FiO2 Intake & Output 12/11/21 12/12/21 12/12/21 18:59 06:59 18:59 Intake Total 240 Balance 240 Intake: Oral 240 Other: Voiding Method Toilet Toilet Toilet # Voids 1 1 1 - Exam In general patient is alert and oriented x 3 in no distress HEENT head normocephalic and atraumatic Neck is supple no JVD no goiter no lymphadenopathy no carotid bruit Chest examination is clear to auscultation no crackles no wheezing Cardiac exam reveals regular heart sounds S1 and S2 no gallops no murmurs Abdomen is soft nontender no organomegaly with normal bowel sounds Extremity exam reveals 2+ edema no cyanosis or clubbing Neurological examination reveals no gross focal deficits - Labs CBC & Chem 7: 12/11/21 09:43 12/11/21 09:43 Labs: Abnormal Lab Results - Last 24 Hours (Table) 12/11/21 12/11/21 Range/Units 09:43 09:43 MCV 102.1 H (80.0-100.0) fL Carbon Dioxide 31 H (22-30) mmol/L BUN 25 H (7-17) mg/dL Glucose 115 H (74-99) mg/dL Microbiology - Last 24 Hours (Table) 12/10/21 19:00 Urine Culture - Final Urine,Clean Catch Assessment and Plan Plan: Bilateral lower extremity edema Acute congestive heart failure exacerbation Atrial fibrillation with rapid ventricular response Underlying history of cardiac arrhythmia was history of pacemaker placement Underlying history of anxiety disorder Previous history of colon cancer status post partial colectomy with colostomy pl acement Evidence of urinary tract infection, urine culture ordered, patient started on IV Rocephin At this time patient is admitted to telemetry floor Cardiology consultation was requested She was started on IV Lasix She was continued on oral Eliquis For heart rate control patient was started on metoprolol Home medications reviewed and reordered Will recheck labs in a.m. and follow closely
--- NOTE | 2021-12-12 13:55 | XR ---
EXAMINATION TYPE: XR foot complete RT DATE OF EXAM: 12/12/2021 1:49 PM INDICATION: Patient age:Female; 89 years old; Reason for study: Right foot pain; PHH. COMPARISON: None TECHNIQUE: The right foot was examined in the AP, oblique, and lateral projections. FINDINGS: No evidence of any acute osseous pathology. Severe hallux valgus deformity. Significant deviation med ially of the second proximal phalanx. No evidence of soft tissue swelling. Joints are preserved. No o sseous erosions. Vascular sclerosis. Plantar calcaneal enthesophyte. Midfoot dorsal osteophytosis. IMPRESSION: 1. No evidence of acute fracture. 2. Severe hallux valgus deformity. 3. Medial deviation of the second proximal phalanx.
[2021-12-12] MEDS: ONDANSETRON 4 MG/2 ML VIAL IVP PRN (16:20)
[2021-12-12] MEDS: LORazepam 0.5 MG TAB PO SCH (22:00)
[2021-12-12] MEDS: ACETAMINOPHEN TAB 500 MG TAB PO SCH (22:01)
[2021-12-13 08:05] LABS: Basophils % (A) 1 %; Eosinophils # (A) 0.2 k/uL (0-0.7); Eosinophils % (A) 4 %; HCT 38.7 % (34.0-46.0); HGB 11.9 gm/dL (11.4-16.0); Hypochromasia Slight; Lymphocytes # (A) 1.9 k/uL (1.0-4.8); Lymphocytes % (A) 40 %; MCH 31.8 pg (25.0-35.0); MCHC 30.8 g/dL (31.0-37.0); Macrocytosis Slight; Mean Platelet Volume 8.9; Monocytes # (A) 0.3 k/uL (0-1.0); Monocytes % (A) 6 %; Neutrophils # (A) 2.3 k/uL (1.3-7.7); Neutrophils % (A) 47 %; Platelet Count 198 k/uL (150-450); RBC 3.75 m/uL (3.80-5.40); RDW 14.9 % (11.5-15.5); WBC 4.8 k/uL (3.8-10.6)
[2021-12-13 08:16] LABS: Albumin 3.3 g/dL (3.5-5.0); Calcium 8.5 mg/dL (8.4-10.2); Potassium 3.8 mmol/L (3.5-5.1); Total Bilirubin 0.2 mg/dL (0.2-1.3); Total Protein 5.5 g/dL (6.3-8.2)
[2021-12-13] MEDS: CYANOCOBALAMIN 500 MCG TAB PO SCH (09:31)
[2021-12-13] MEDS: allopurinoL 100 MG TAB PO SCH (09:31)
[2021-12-13] MEDS: APIXABAN 2.5 MG TABLET PO SCH ×2 (09:31→21:29)
[2021-12-13] MEDS: MULTIVITAMINS, THERA 1 EACH TAB PO SCH (09:31)
[2021-12-13] MEDS: METOPROLOL TARTRATE 12.5 MG TAB PO SCH ×2 (09:31→23:20)
[2021-12-13] MEDS: PANTOPRAZOLE 40 MG TABLET PO SCH (09:32)
[2021-12-13] MEDS: FUROSEMIDE 20 MG TAB PO SCH (09:32)
[2021-12-13] MEDS: VIT A,C & E-LUTEIN-MINERALS 1 EACH TAB PO SCH (09:32)
[2021-12-13] MEDS: DOCUSATE 100 MG CAP PO SCH ×2 (09:32→21:29)
[2021-12-13] MEDS: DIGOXIN 62.5 MCG TAB PO SCH (09:32)
[2021-12-13] MEDS: SERTRALINE 25 MG TAB PO SCH (09:32)
[2021-12-13] MEDS: CHOLECALCIFEROL 25 MCG (1000 IU) TABLET PO SCH (09:32)
--- NOTE | 2021-12-13 12:23 | P.PN ---
Subjective Progress Note Date: 12/13/21 Maggy Davison, is an 89-year-old female who presented to [facility] emergency room with a chief complaint of bilateral lower extremity pain and swelling She was evaluated in the emergency room vital examination on presentation revealed a temperature of 97.9 pulse 148 respiration 20 blood pressure 95/68 pulse ox 96% on room air Laboratory data reveals a white blood count of 4.4 hemoglobin 12.2 platelet count 191 sodium 138 potassium 4.0 chloride 99 CO2 28 BUN 29 creatinine 1.14 uri ne analysis revealed evidence of urinary tract infection Testing in the emergency room revealed EKG done in the emergency room revealed evidence of atrial fibrillation with rapid ventricular response, chest x-ray done in the emergency room revealed cardiomegaly otherwise no acute abnormality. Patient was admitted to medical floor for further evaluation and treatment On 12/12/2021 patient was seen and examined on the telemetry floor she is alert and oriented 3 in no apparent distress she is complaining of bilateral lower extremity swelling, and complaining of right foot pain, otherwise she denies any complaints there is no fever or chills, no headache or dizziness no chest pain no shortness of breath no cough no nausea or vomiting no abdominal pain no diarrhea and no urinary symptoms. On 12/13/2021 patient was seen and examined on the medical floor she is alert and oriented 3 in no apparent distress she reports significant improvement in bilateral lower extremity swelling and in her right foot pain, otherwise she denies any complaints there is no fever or chills no headache or dizziness no chest pain no shortness of breath no cough no nausea or vomiting no abdominal pain no diarrhea no blood in the stools no burning with urination no frequency or urgency and no hematuria. Kidney function has worsened significantly since yesterday creatinine up to 1.68 at this time will hold furosemide patient encouraged to drink water will recheck labs in a.m. tomorrow possible discharge to home tomorrow Objective - Vital Signs Vital signs: Vital Signs Temp 97.9 F 12/13/21 09:30 Pulse 96 12/13/21 09:30 Resp 16 12/13/21 09:30 BP 89/60 12/13/21 09:30 Pulse Ox 96 12/13/21 09:30 FiO2 Intake & Output 12/12/21 12/13/21 12/13/21 18:59 06:59 18:59 Intake Total 118 Output Total 3 250 Balance 115 -250 Weight 55.338 kg 55.7 kg Intake: Oral 118 Output: Urine 3 250 Other: Voiding Method Toilet Toilet Toilet # Voids 2 2 - Exam In general patient is alert and oriented x 3 in no distress HEENT head normocephalic and atraumatic Neck is supple no JVD no goiter no lymphadenopathy no carotid bruit Chest examination is clear to auscultation no crackles no wheezing Cardiac exam reveals regular heart sounds S1 and S2 no gallops no murmurs Abdomen is soft nontender no organomegaly with normal bowel sounds Extremity exam reveals 2+ edema no cyanosis or clubbing Neurological examination reveals no gross focal deficits - Labs CBC & Chem 7: 12/13/21 07:06 12/13/21 07:06 Labs: Abnormal Lab Results - Last 24 Hours (Table) 12/13/21 12/13/21 Range/Units 07:06 07:06 RBC 3.75 L (3.80-5.40) m/uL MCV 103.0 H (80.0-100.0) fL MCHC 30.8 L (31.0-37.0) g/dL Chloride 97 L (98-107) mmol/L Carbon Dioxide 31 H (22-30) mmol/L BUN 32 H (7-17) mg/dL Creatinine 1.68 H (0.52-1.04) mg/dL Total Protein 5.5 L (6.3-8.2) g/dL Albumin 3.3 L (3.5-5.0) g/dL Assessment and Plan Plan: Bilateral lower extremity edema Acute congestive heart failure exacerbation Atrial fibrillation with rapid ventricular response Underlying history of cardiac arrhythmia was history of pacemaker placement Underlying history of anxiety disorder Previous history of colon cancer status post partial colectomy with colostomy placement Evidence of urinary tract infection, urine culture ordered, patient started on IV Rocephin At this time patient is admitted to telemetry floor Cardiology consultation was requested She was started on IV Lasix She was continued on oral Eliquis For heart rate control patient was started on metoprolol Home medications reviewed and reordered Will recheck labs in a.m. and follow closely
[2021-12-13] MEDS: ACETAMINOPHEN TAB 500 MG TAB PO SCH (21:29)
[2021-12-13] MEDS: LORazepam 0.5 MG TAB PO SCH (21:29)
[2021-12-14] MEDS: APIXABAN 2.5 MG TABLET PO SCH ×2 (10:11→21:00)
[2021-12-14] MEDS: CYANOCOBALAMIN 500 MCG TAB PO SCH (10:11)
[2021-12-14] MEDS: VIT A,C & E-LUTEIN-MINERALS 1 EACH TAB PO SCH (10:11)
[2021-12-14] MEDS: METOPROLOL TARTRATE 12.5 MG TAB PO SCH ×2 (10:11→21:00)
[2021-12-14] MEDS: DOCUSATE 100 MG CAP PO SCH ×2 (10:11→21:00)
[2021-12-14] MEDS: allopurinoL 100 MG TAB PO SCH (10:11)
[2021-12-14] MEDS: DIGOXIN 62.5 MCG TAB PO SCH ×2 (10:11→10:12)
[2021-12-14 10:12] LABS: Calcium 8.5 mg/dL (8.4-10.2); Potassium 3.4 mmol/L (3.5-5.1)
[2021-12-14] MEDS: CHOLECALCIFEROL 25 MCG (1000 IU) TABLET PO SCH (10:12)
[2021-12-14] MEDS: MULTIVITAMINS, THERA 1 EACH TAB PO SCH (10:25)
[2021-12-14] MEDS: SERTRALINE 25 MG TAB PO SCH (10:25)
[2021-12-14] MEDS: PANTOPRAZOLE 40 MG TABLET PO SCH (10:25)
--- NOTE | 2021-12-14 10:25 | P.GSCN ---
History of Present Illness Consult date: 12/14/21 Reason for Consult: Peripheral arterial disease Requesting physician: Marco Zavala History of present illness: This is an 89-year-old female who presented to the emergency department for lower extremity edema. She has a past medical history of atrial fibrillation on [place], colon cancer status post colostomy and congestive heart failure. She presented to the emergency department on 12/10/2021 with complaints of increased lower extremity edema. During her hospitalization she reportedly was complaining of right foot pain, therefore vascular surgery was consulted for possible peripheral arterial disease. Patient currently denies any pain, states he was due to her swelling. Denies any pain with ambulation. She states her swelling has improved since her hospitalization. She denies any shortness of breath, chest pain, nausea or vomiting, fevers or chills. Denies any previous history of peripheral arterial disease. She had an x-ray of the right foot which showed no evidence of acute fracture, severe hallux valgus deformity, medial deviation of the second proximal phalanx. Review of Systems A 14 point review systems was completed all pertinent positives and negatives as stated in the HPI. Past Medical History Past Medical History: Cancer, GERD/Reflux, Osteoarthritis (OA) Additional Past Medical History / Comment(s): see Dr Leger H&P, migraines, colostomy, hx colon cancer, hx gout, bradycardia History of Any Multi-Drug Resistant Organisms: None Reported Past Surgical History: Bowel Resection, Pacemaker Additional Past Surgical History / Comment(s): bowel resection with colostomy, radha cataracts Past Anesthesia/Blood Transfusion Reactions: No Reported Reaction Type of Cardiac Device: Permanent Pacemaker Device Placement Date:: 2020 Past Psychological History: Anxiety Smoking Status: Never smoker Past Alcohol Use History: None Reported Past Drug Use History: None Reported - Past Family History Mother Family Medical History: No Reported History Medications and Allergies Home Medications Medication Instructions Recorded Confirmed Type Acetaminophen [Tylenol Extra 1,000 mg PO DAILY 12/15/20 12/10/21 History Strength] Acetaminophen [Tylenol Extra 500 mg PO HS 12/15/20 12/10/21 History Strength] Cholecalciferol [Vitamin D3 (25 25 mcg PO DAILY 12/15/20 12/10/21 History Mcg = 1000 Iu)] Cyanocobalamin [Vitamin B-12] 500 mcg PO DAILY 12/15/20 12/10/21 History Furosemide [Lasix] 20 mg PO QID 12/15/20 12/10/21 History LORazepam [Ativan] 0.5 mg PO HS 12/15/20 12/10/21 History Sertraline HCl [Zoloft] 25 mg PO DAILY 12/15/20 12/10/21 History Vit C/E/Zn/Coppr/Lutein/Zeaxan 1 cap PO DAILY 12/15/20 12/10/21 History [Preservision Areds 2 Softgel] allopurinoL [Zyloprim] 50 mg PO DAILY 12/22/20 12/10/21 History Apixaban [Eliquis] 2.5 mg PO BID 12/10/21 12/10/21 History Docusate [Colace] 100 mg PO BID 12/10/21 12/10/21 History HYDROcodone/APAP 5-325MG [[place] 1 tab PO Q6HR PRN 12/10/21 12/10/21 History 5-325] Meclizine [Antivert] 12.5 - 25 mg PO TID PRN 12/10/21 12/10/21 History Multivitamins, Thera [Multivitamin 1 tab PO DAILY 12/10/21 12/10/21 History (formulary)] Omeprazole 40 mg PO BID 12/10/21 12/10/21 History Allergies Allergy/AdvReac Type Severity Reaction Status Date / Time No Known Allergies Allergy Verified 12/10/21 18:16 Surgical - Exam Vital Signs Temp Pulse Resp BP Pulse Ox 97.9 F 148 H 20 95/68 96 12/10/21 14:25 12/10/21 14:25 12/10/21 14:25 12/10/21 14:25 12/10/21 14:25 General appearance: The patient is alert, oriented, appears in no acute distress. HET: Head is normocephalic and atraumatic. Pupils are equal and reactive. Neck: Supple without lymphadenopathy. Trachea midline. No audible carotid bruit. Heart: S1 S2. Regular rate and rhythm. Lungs: Clear to auscultation bilaterally. Abdomen: Soft, nontender, nondistended. Extremities: Normal skin color and turgor. No lower extremity edema noted. Palpable femoral, posterior tibialis and dorsalis pedis pulses. Patient with bilateral second toe proximal phalanx deviation. Neurological: No focal deficits. Strength and sensation are grossly intact. Results - Labs 12/13/21 07:06 12/14/21 09:45 - Imaging Comments: x-ray of the right foot which showed no evidence of acute fracture, severe hallux valgus deformity, medial deviation of the second proximal phalanx. Assessment and Plan Assessment: 1. Bilateral lower extremity edema 2. Congestive heart failure exacerbation 3. Atrial fibrillation, history of pacemaker placement Plan: Patient was seen and examined, patient has bilateral palpable lower extremity pulses. There is no evidence for peripheral arterial disease. Patient certainly can follow-up as an outpatient if she has further lower extremity pain. Bilateral lower extremity edema improved. No further workup indicated at this time. Thank you for this consultation, we will sign off at this time. The impression and plan of care has been dictated as directed. I performed a history and examination of this patient, discussed the same with the dictator. I agree with the dictator's note ,documented as a scribe. Any additional findings or plans will be noted.
--- NOTE | 2021-12-14 12:10 | P.PN ---
Subjective Progress Note Date: 12/14/21 HISTORY OF PRESENT ILLNESS: This is an 89-year-old female who follows in the office with Dr. Farmer. The patient is admitted to the hospital secondary to atrial fibrillation and kwasi estive heart failure. The patient was treated with IV Lasix. She developed an acute kidney injury and her Lasix was placed on hold. Telemetry reveals age of fibrillation with controlled ventricular rate. PHYSICAL EXAM: VITAL SIGNS: Reviewed. GENERAL: Well-developed in no acute distress. NECK: Supple. No JVD or thyromegaly LUNGS: Respirations even and unlabored. Lungs essentially clear to auscultation bilaterally. HEART: Irregular rate and rhythm. S1 and S2 heard. Systolic murmur noted. EXTREMITIES: Normal range of motion. No clubbing or cyanosis. Peripheral pulses intact. 2+ bilateral nonpitting lower extremity edema ASSESSMENT: Acute on chronic heart failure, type unknown Persistent atrial fibrillation Acute kidney injury Sick sinus syndrome, status post pacemaker insertion PLAN: Continue current cardiac medications Continue to hold diuretics Monitor kidney function Patient to have outpatient echo performed at cardiology office per note dated 12/11/2021 Further recommendations pending patient's course Nurse practitioner note has been reviewed by physician. Signing provider agrees with the documented findings, assessment, and plan of care. Objective - Vital Signs Vital signs: Vital Signs Temp 98.0 F 12/14/21 04:01 Pulse 74 12/14/21 04:01 Resp 16 12/14/21 04:01 BP 107/67 12/14/21 04:01 Pulse Ox 94 L 12/14/21 04:01 FiO2 Intake & Output 12/13/21 12/14/21 12/14/21 18:59 06:59 18:59 Intake Total 240 240 Output Total 350 400 Balance -110 -160 Weight 56.6 kg Intake: Oral 240 240 Output: Urine 350 400 Other: Voiding Method Toilet # Voids 1 2 - Labs CBC & Chem 7: 12/13/21 07:06 12/14/21 09:45 Labs: Abnormal Lab Results - Last 24 Hours (Table) 12/14/21 Range/Units 09:45 Sodium 136 L (137-145) mmol/L Potassium 3.4 L (3.5-5.1) mmol/L Chloride 97 L (98-107) mmol/L Carbon Dioxide 31 H (22-30) mmol/L BUN 32 H (7-17) mg/dL Creatinine 1.43 H (0.52-1.04) mg/dL
[2021-12-14] MEDS: LORazepam 0.5 MG TAB PO SCH (21:00)
[2021-12-14] MEDS: ACETAMINOPHEN TAB 500 MG TAB PO SCH (21:00)
[2021-12-14 23:50] VITALS: RESP 18; TEMP 97.9
[2021-12-15] MEDS: CYANOCOBALAMIN 500 MCG TAB PO SCH (08:08)
[2021-12-15] MEDS: allopurinoL 100 MG TAB PO SCH (08:09)
[2021-12-15] MEDS: VIT A,C & E-LUTEIN-MINERALS 1 EACH TAB PO SCH (08:09)
[2021-12-15] MEDS: METOPROLOL TARTRATE 12.5 MG TAB PO SCH (08:09)
[2021-12-15] MEDS: DOCUSATE 100 MG CAP PO SCH (08:09)
[2021-12-15] MEDS: SERTRALINE 25 MG TAB PO SCH (08:09)
[2021-12-15] MEDS: PANTOPRAZOLE 40 MG TABLET PO SCH (08:09)
[2021-12-15] MEDS: CHOLECALCIFEROL 25 MCG (1000 IU) TABLET PO SCH (08:09)
[2021-12-15] MEDS: APIXABAN 2.5 MG TABLET PO SCH (08:09)
[2021-12-15] MEDS: MULTIVITAMINS, THERA 1 EACH TAB PO SCH (08:09)
[2021-12-15 08:13] VITALS: BP 100/79; PULSE 53
[2021-12-15 09:48] LABS: Calcium 8.7 mg/dL (8.4-10.2); Potassium 3.4 mmol/L (3.5-5.1)
--- NOTE | 2021-12-15 10:05 | P.PN ---
Subjective Progress Note Date: 12/15/21 HISTORY OF PRESENT ILLNESS: This is an 89-year-old female who follows in the office with Dr. Farmer. The patient is admitted to the hospital secondary to atrial fibrillation and kwasi estive heart failure. The patient was treated with IV Lasix. She developed an acute kidney injury and her Lasix was placed on hold. Telemetry reveals age of fibrillation with controlled ventricular rate. 12/15/2021 Patient examined this morning at the bedside. Patient denies chest pain or pressure. Denies SOB. Telemetry reveals atrial fibrillation with a heart rate in the 90s. Lasix remains on hold. Diuretics remain on hold. PHYSICAL EXAM: VITAL SIGNS: Reviewed. GENERAL: Well-developed in no acute distress. NECK: Supple. No JVD or thyromegaly LUNGS: Respirations even and unlabored. Lungs essentially clear to auscultation bilaterally. HEART: Irregular rate and rhythm. S1 and S2 heard. Systolic murmur noted. EXTREMITIES: Normal range of motion. No clubbing or cyanosis. Peripheral pulses intact. 1-2+ bilateral nonpitting lower extremity edema ASSESSMENT: Acute on chronic heart failure, type unknown Persistent atrial fibrillation Acute kidney injury Sick sinus syndrome, status post pacemaker insertion PLAN: Continue current cardiac medications. Monitor kidney function. Await morning labs. When kidney function normalizes, will resume oral Lasix. Patient to have outpatient echo performed at cardiology office per note dated 12/11/2021. Further recommendations pending patient's course Nurse practitioner note has been reviewed by physician. Signing provider agrees with the documented findings, assessment, and plan of care. Objective - Vital Signs Vital signs: Vital Signs Temp 97.9 F 12/14/21 23:48 Pulse 53 L 12/15/21 08:00 Resp 18 12/15/21 08:00 BP 100/79 12/15/21 08:00 Pulse Ox 95 12/15/21 08:00 FiO2 Intake & Output 12/14/21 12/15/21 12/15/21 18:59 06:59 18:59 Intake Total 240 10 Output Total 400 400 Balance -160 -390 Weight 56.3 kg Intake: IV 10 Invasive Line 2 10 Oral 240 Output: Urine 400 400 - Labs CBC & Chem 7: 12/13/21 07:06 12/15/21 09:05 Labs: Abnormal Lab Results - Last 24 Hours (Table) 12/14/21 12/15/21 Range/Units 09:45 09:05 Sodium 136 L 136 L (137-145) mmol/L Potassium 3.4 L 3.4 L (3.5-5.1) mmol/L Chloride 97 L (98-107) mmol/L Carbon Dioxide 31 H 31 H (22-30) mmol/L BUN 32 H 26 H (7-17) mg/dL Creatinine 1.43 H 1.13 H (0.52-1.04) mg/dL Glucose 125 H (74-99) mg/dL
--- NOTE | 2021-12-15 11:01 | P.PN ---
Subjective Progress Note Date: 12/14/21 Maggy Davison, is an 89-year-old female who presented to [facility] emergency room with a chief complaint of bilateral lower extremity pain and swelling She was evaluated in the emergency room vital examination on presentation revealed a temperature of 97.9 pulse 148 respiration 20 blood pressure 95/68 pulse ox 96% on room air Laboratory data reveals a white blood count of 4.4 hemoglobin 12.2 platelet count 191 sodium 138 potassium 4.0 chloride 99 CO2 28 BUN 29 creatinine 1.14 uri ne analysis revealed evidence of urinary tract infection Testing in the emergency room revealed EKG done in the emergency room revealed evidence of atrial fibrillation with rapid ventricular response, chest x-ray done in the emergency room revealed cardiomegaly otherwise no acute abnormality. Patient was admitted to medical floor for further evaluation and treatment On 12/12/2021 patient was seen and examined on the telemetry floor she is alert and oriented 3 in no apparent distress she is complaining of bilateral lower extremity swelling, and complaining of right foot pain, otherwise she denies any complaints there is no fever or chills, no headache or dizziness no chest pain no shortness of breath no cough no nausea or vomiting no abdominal pain no diarrhea and no urinary symptoms. On 12/13/2021 patient was seen and examined on the medical floor she is alert and oriented 3 in no apparent distress she reports significant improvement in bilateral lower extremity swelling and in her right foot pain, otherwise she denies any complaints there is no fever or chills no headache or dizziness no chest pain no shortness of breath no cough no nausea or vomiting no abdominal pain no diarrhea no blood in the stools no burning with urination no frequency or urgency and no hematuria. Kidney function has worsened significantly since yesterday creatinine up to 1.68 at this time will hold furosemide patient encouraged to drink water will recheck labs in a.m. tomorrow possible discharge to home tomorrow On 12/14/2021 patient was seen and examined on the medical floor she is alert and oriented 3 in no apparent distress she reports significant improvement in bilateral lower extremity swelling and in her right foot pain, otherwise she denies any complaints there is no fever or chills no headache or dizziness no chest pain no shortness of breath no cough no nausea or vomiting no abdominal pain no diarrhea no blood in the stools no burning with urination no frequency or urgency and no hematuria. Kidney function has worsened significantly since yesterday creatinine up to 1.68 at this time will hold furosemide patient encouraged to drink water will recheck labs in a.m. tomorrow possible discharge to home tomorrow Objective - Vital Signs Vital signs: Vital Signs Temp 97.9 F 12/14/21 23:48 Pulse 53 L 12/15/21 08:00 Resp 18 12/15/21 08:00 BP 100/79 12/15/21 08:00 Pulse Ox 95 12/15/21 08:00 FiO2 Intake & Output 12/14/21 12/15/21 12/15/21 18:59 06:59 18:59 Intake Total 240 10 Output Total 400 400 Balance -160 -390 Weight 56.3 kg Intake: IV 10 Invasive Line 2 10 Oral 240 Output: Urine 400 400 - Exam In general patient is alert and oriented x 3 in no distress HEENT head normocephalic and atraumatic Neck is supple no JVD no goiter no lymphadenopathy no carotid bruit Chest examination is clear to auscultation no crackles no wheezing Cardiac exam reveals regular heart sounds S1 and S2 no gallops no murmurs Abdomen is soft nontender no organomegaly with normal bowel sounds Extremity exam reveals 2+ edema no cyanosis or clubbing Neurological examination reveals no gross focal deficits - Labs CBC & Chem 7: 12/13/21 07:06 12/15/21 09:05 Labs: Abnormal Lab Results - Last 24 Hours (Table) 12/15/21 Range/Units 09:05 Sodium 136 L (137-145) mmol/L Potassium 3.4 L (3.5-5.1) mmol/L Carbon Dioxide 31 H (22-30) mmol/L BUN 26 H (7-17) mg/dL Creatinine 1.13 H (0.52-1.04) mg/dL Glucose 125 H (74-99) mg/dL Assessment and Plan Plan: Bilateral lower extremity edema Acute congestive heart failure exacerbation Atrial fibrillation with rapid ventricular response Underlying history of cardiac arrhythmia was history of pacemaker placement Underlying history of anxiety disorder Previous history of colon cancer status post partial colectomy with colostomy placement Evidence of urinary tract infection, urine culture ordered, patient started on IV Rocephin At this time patient is admitted to telemetry floor Cardiology consultation was requested She was started on IV Lasix She was continued on oral Eliquis For heart rate control patient was started on metoprolol Home medications reviewed and reordered Will recheck labs in a.m. and follow closely
[2021-12-15 12:16] VITALS: BMI 25.0
--- NOTE | 2021-12-15 12:58 | P.DS ---
Providers Date of admission: 12/10/21 18:43 Expected date of discharge: 12/15/21 Attending physician: Marco Zavala Consults: 12/10/21 18:51 Consult Physician Urgent Consulting Provider: [facility] Consult Reason/Comments: afib with rvr, aechf Do you want consulting provider notified?: Yes Primary care physician: [facility] Course: Diagnosis on discharge: Bilateral lower extremity edema Acute congestive heart failure exacerbation Atrial fibrillation with rapid ventricular response Underlying history of cardiac arrhythmia was history of pacemaker placement Underlying history of anxiety disorder Previous history of colon cancer status post partial colectomy with colostomy placement Evidence of urinary tract infection, urine culture ordered, patient started on IV Rocephin, she was given a course of Cefdinir at the time of discharge Hospital course: Maggy Davison, is an 89-year-old female who presented to [facility] emergency room with a chief complaint of bilateral lower extremity pain and swelling She was evaluated in the emergency room vital examination on presentation revealed a temperature of 97.9 pulse 148 respiration 20 blood pressure 95/68 pulse ox 96% on room air Laboratory data reveals a white blood count of 4.4 hemoglobin 12.2 platelet c ount 191 sodium 138 potassium 4.0 chloride 99 CO2 28 BUN 29 creatinine 1.14 urine analysis revealed evidence of urinary tract infection Testing in the emergency room revealed EKG done in the emergency room revealed evidence of atrial fibrillation with rapid ventricular response, chest x-ray done in the emergency room revealed cardiomegaly otherwise no acute abnormality. Patient was admitted to medical floor for further evaluation and treatment On 12/12/2021 patient was seen and examined on the telemetry floor she is alert and oriented 3 in no apparent distress she is complaining of bilateral lower extremity swelling, and complaining of right foot pain, otherwise she denies any complaints there is no fever or chills, no headache or dizziness no chest pain no shortness of breath no cough no nausea or vomiting no abdominal pain no diarrhea and no urinary symptoms. On 12/13/2021 patient was seen and examined on the medical floor she is alert and oriented 3 in no apparent distress she reports significant improvement in bilateral lower extremity swelling and in her right foot pain, otherwise she denies any complaints there is no fever or chills no headache or dizziness no chest pain no shortness of breath no cough no nausea or vomiting no abdominal pain no diarrhea no blood in the stools no burning with urination no frequency or urgency and no hematuria. Kidney function has worsened significantly since yesterday creatinine up to 1.68 at this time will hold furosemide patient encouraged to drink water will recheck labs in a.m. tomorrow possible discharge to home tomorrow On 12/14/2021 patient was seen and examined on the medical floor she is alert and oriented 3 in no apparent distress she reports significant improvement in bilateral lower extremity swelling and in her right foot pain, otherwise she denies any complaints there is no fever or chills no headache or dizziness no chest pain no shortness of breath no cough no nausea or vomiting no abdominal pain no diarrhea no blood in the stools no burning with urination no frequency or urgency and no hematuria. Kidney function has worsened significantly since yesterday creatinine up to 1.68 at this time will hold furosemide patient encouraged to drink water will recheck labs in a.m. tomorrow possible discharge to home tomorrow On 12/15/2021 patient was seen and examined on the telemetry floor she is alert and oriented 3 in no apparent distress she denies any complaints at this time there is no fever or chills no headache or dizziness no chest pain no shortness of breath no cough no nausea or vomiting no abdominal pain no diarrhea and no urinary symptoms. Lower extremity edema improved significantly during this admission. Kidney function improved, creatinine is down to 1.13, BUN is down to 26 patient is stable for discharge. During this admission patient had metoprolol 12.5 mg twice a day added to her medication regimen and Lanoxin 62.5 g once daily added to her medication regimen she was also given a course of Cefdinir, she will follow-up with her primary care physician Dr. Quinteros and follow-up with cardiology in the next 1-2 weeks Patient Condition at Discharge: Stable Plan - Discharge Summary Discharge Rx Participant: No New Discharge Prescriptions: New Digoxin [Lanoxin] 62.5 mcg PO DAILY 30 Days #30 tablet Metoprolol Tartrate [Lopressor] 12.5 mg PO BID tab Cefdinir 300 mg PO Q12HR 7 Days #14 cap Continue Acetaminophen [Tylenol Extra Strength] 1,000 mg PO DAILY Vit C/E/Zn/Coppr/Lutein/Zeaxan [Preservision Areds 2 Softgel] 1 cap PO DAILY Cyanocobalamin [Vitamin B-12] 500 mcg PO DAILY LORazepam [Ativan] 0.5 mg PO HS Furosemide [Lasix] 20 mg PO QID Acetaminophen [Tylenol Extra Strength] 500 mg PO HS allopurinoL [Zyloprim] 50 mg PO DAILY Docusate [Colace] 100 mg PO BID Omeprazole 40 mg PO BID Cholecalciferol [Vitamin D3 (25 Mcg = 1000 Iu)] 25 mcg PO DAILY Sertraline HCl [Zoloft] 25 mg PO DAILY Meclizine [Antivert] 12.5 - 25 mg PO TID PRN PRN Reason: Vertigo Multivitamins, Thera [Multivitamin (formulary)] 1 tab PO DAILY HYDROcodone/APAP 5-325MG [[place] 5-325] 1 tab PO Q6HR PRN PRN Reason: Pain Apixaban [Eliquis] 2.5 mg PO BID Discharge Medication List Acetaminophen [Tylenol Extra Strength] 1,000 mg PO DAILY 12/15/20 [History] Acetaminophen [Tylenol Extra Strength] 500 mg PO HS 12/15/20 [History] Cholecalciferol [Vitamin D3 (25 Mcg = 1000 Iu)] 25 mcg PO DAILY 12/15/20 [History] Cyanocobalamin [Vitamin B-12] 500 mcg PO DAILY 12/15/20 [History] Furosemide [Lasix] 20 mg PO QID 12/15/20 [History] LORazepam [Ativan] 0.5 mg PO HS 12/15/20 [History] Sertraline HCl [Zoloft] 25 mg PO DAILY 12/15/20 [History] Vit C/E/Zn/Coppr/Lutein/Zeaxan [Preservision Areds 2 Softgel] 1 cap PO DAILY 12/15/20 [History] allopurinoL [Zyloprim] 50 mg PO DAILY 12/22/20 [History] Apixaban [Eliquis] 2.5 mg PO BID 12/10/21 [History] Docusate [Colace] 100 mg PO BID 12/10/21 [History] HYDROcodone/APAP 5-325MG [[place] 5-325] 1 tab PO Q6HR PRN 12/10/21 [History] Meclizine [Antivert] 12.5 - 25 mg PO TID PRN 12/10/21 [History] Multivitamins, Thera [Multivitamin (formulary)] 1 tab PO DAILY 12/10/21 [History] Omeprazole 40 mg PO BID 12/10/21 [History] Cefdinir 300 mg PO Q12HR 7 Days #14 cap 12/15/21 [Rx] Digoxin [Lanoxin] 62.5 mcg PO DAILY 30 Days #30 tablet 12/15/21 [Rx] Metoprolol Tartrate [Lopressor] 12.5 mg PO BID tab 12/15/21 [Rx] Follow up Appointment(s)/Referral(s): Soni Quinteros MD [Primary Care Provider] - 1-2 days
--- NOTE | 2021-12-16 23:16 | CDI ---
Documentation Clarification Form Date: 12/16/2021 10:47:12 PM From: Nelly Ramirez Phone: Admit Date: 12/10/2021 06:43:00 PM Patient Name: Maggy Davison Visit Number: [id number] Discharge Date: 12/15/2021 02:08:00 PM ATTENTION: The Clinical Documentation Specialists (CDI) and [facility] Coding Staff appreciate your assistance in clarifying documentation. Please respond to the clarification below the line at the bottom and electronically sign. The CDI & [facility] Coding staff will review the response and follow-up if needed. Please note: Queries are made part of the Legal Health Record. If you have any questions, please contact the author of this message via ITS. Dr. Marco Zavala Conflicting documentation has been found in the medical record. As attending physician, please provide clarification. Acute on chronic heart failure per [facility] Progress Note 12/15/21. CXR done in the ED revealed cardiomegaly otherwise no acute abnormality (No CHF) History/Risk Factors: 89yo F, Persistent a fib on Eliquis, Colon CA sp colostomy, A/C CHF, GERD, OA, Migraines, SSS w PPM, Anxiety, Peripheral edema, UTI, ELENA, LBBB VS/Pulse OX: 93 L BNP: 10,600 Echocardiogram Results: Patient to have outpatient echo performed at cardiology office per note dated Chest x ray: Heart is enlarged. There is no heart failure. There is left axillary PPM. No definite Pl Eff. no hilar masses. IMPRESSION: Cardiomegaly. No pulmonary consolidation or HF. No significant change compared to old exam. Treatment: No repeat ECHO. IV Lasix push daily In your professional opinion, can you please clarify the acuity and type of CHF if known? [ ] Heart Failure ruled out [ ] Acute on Chronic Systolic Heart Failure (reduced EF) [ ] Acute on Chronic Diastolic Heart Failure (preserved EF) [ ] Acute on Chronic Heart Failure Systolic & Diastolic Heart Failure [ ] Other, please specify [ xxx ] Unable to determine Acute on chronic heart failure, unable to determine whether it is systolic or diastolic without Echo results (Template Last Revised: May 2020) MTDD
== END 2021-12-15 14:08 | disposition home or self-care (01) | DRG 292 ==
LOC: EC 14:23 → 3SCARD 18:43
PROVIDERS: ADMIT Internal Medicine; ATTEND Internal Medicine
DX: I50.9 Heart failure, unspecified (principal); I48.19 Other persistent atrial fibrillation; N17.9 Acute kidney failure, unspecified; N39.0 Urinary tract infection, site not specified; I73.9 Peripheral vascular disease, unspecified; I49.5 Sick sinus syndrome; T50.906A Underdosing of unspecified drugs, medicaments and biological substances, initial encounter; M19.90 Unspecified osteoarthritis, unspecified site; F41.9 Anxiety disorder, unspecified; I44.7 Left bundle-branch block, unspecified; R79.89 Other specified abnormal findings of blood chemistry; M79.671 Pain in right foot; M20.11 Hallux valgus (acquired), right foot; R01.1 Cardiac murmur, unspecified; Z79.01 Long term (current) use of anticoagulants; Z85.038 Personal history of other malignant neoplasm of large intestine; Z93.3 Colostomy status; Z79.899 Other long term (current) drug therapy; Z91.128 Patient's intentional underdosing of medication regimen for other reason; Z79.1 Long term (current) use of non-steroidal anti-inflammatories (NSAID); Z87.39 Personal history of other diseases of the musculoskeletal system and connective tissue; Z90.49 Acquired absence of other specified parts of digestive tract; Z98.41 Cataract extraction status, right eye; Z98.42 Cataract extraction status, left eye; Z95.0 Presence of cardiac pacemaker
CPT/HCPCS: 36415; 71046; 80048; 80053; 81001; 83735; 83880; 84443; 84484; 85025; 85610; 85730; 87086; 93005; 96374; 99285